=== PATIENT | female | born 1975 | race Caucasian/White ===

== ENCOUNTER 2023-01-02 20:28 | Emergency (ER) | payer BC, OTHER ==
[~2023-01-02] VITALS: Ht 160 cm; Wt 91.0 kg
[2023-01-02] MEDS ORDERED: ONDANSETRON 4 MG/2 ML (SDV) Z0FRAN ONE (21:04)
[2023-01-02 21:32] LABS: BASOPHILS # (AUTO) 0.1 10^3/uL (0.0-0.1); BASOPHILS % (AUTO) 1 % (0-10); EOSINOPHILS # (AUTO) 0.2 10^3/uL (0.0-0.3); EOSINOPHILS % (AUTO) 1 % (0-10); HEMATOCRIT 41 % (35-52); HEMOGLOBIN 13.5 g/dL (11.5-16.0); LYMPHOCYTES # (AUTO) 2.2 10^3/uL (1.0-4.0); LYMPHOCYTES % (AUTO) 15 % (12-44); MEAN CORPUSCULAR HEMOGLOBIN 28 pg (25-34); MEAN CORPUSCULAR HGB CONC 33 g/dL (32-36); MEAN CORPUSCULAR VOLUME 86 fL (80-99); MEAN PLATELET VOLUME 10.1 fL (9.0-12.2); MONOCYTES # (AUTO) 1.1 10^3/uL (0.0-1.0); MONOCYTES % (AUTO) 8 % (0-12); NEUTROPHILS # (AUTO) 10.7 10^3/uL (1.8-7.8); NEUTROPHILS % (AUTO) 75 % (42-75); PLATELET COUNT 387 10^3/uL (130-400); WHITE BLOOD COUNT 14.3 10^3/uL (4.3-11.0)
[2023-01-02 21:37] LABS: POTASSIUM 3.7 MMOL/L (3.6-5.0)
[2023-01-02 21:38] LABS: CALCIUM 9.1 MG/DL (8.5-10.1)
[2023-01-02 21:39] LABS: TOTAL PROTEIN 7.4 GM/DL (6.4-8.2)
[2023-01-02 21:41] LABS: BILIRUBIN,TOTAL 0.4 MG/DL (0.1-1.0)
[2023-01-02 21:43] LABS: CREATININE SERUM 0.9 MG/DL (0.60-1.30)
[2023-01-02 21:55] LABS: BILIRUBIN,URINE NEGATIVE (NEGATIVE); CLARITY,URINE CLEAR; COLOR,URINE YELLOW; GLUCOSE, URINE (UA) NEGATIVE (NEGATIVE); KETONES,URINE NEGATIVE (NEGATIVE); LEUKOCYTE ESTERASE ,URINE 1+ (NEGATIVE); NITRITE,URINE NEGATIVE (NEGATIVE); PROTEIN,URINE NEGATIVE (NEGATIVE)
[2023-01-02 22:07] LABS: BAND NEUTROPHILS 2 %; EOSINOPHILS % (MANUAL) 1 %; LYMPHOCYTES % (MANUAL) 20 %; MONOCYTES % (MANUAL) 6 %; NEUTROPHILS % (MANUAL) 70 %
[2023-01-02 22:08] LABS: ATYPICAL LYMPHOCYTES 1 %; PLATELET ESTIMATE ADEQUATE; RBC MORPH NORMAL
[2023-01-02 22:14] LABS: BACTERIA,URINE FEW /HPF
[2023-01-02 22:17] LABS: AMPHETAMINE SCREEN, URINE NEGATIVE (NEGATIVE); BARBITURATE SCREEN URINE NEGATIVE (NEGATIVE); BENZODIAZEPINES SCREEN URINE POSITIVE (NEGATIVE); CANNABINOID SCREEN, URINE NEGATIVE (NEGATIVE); COCAINE SCREEN URINE NEGATIVE (NEGATIVE); METHADONE STAT NEGATIVE (NEGATIVE); OPIATE SCREEN URINE NEGATIVE (NEGATIVE); OXYCODONE STAT NEGATIVE (NEGATIVE); PROPOXYPHENE STAT NEGATIVE (NEGATIVE); TRICYCLIC ANTIDEPRESSANTS SCRE NEGATIVE (NEGATIVE)
--- NOTE | 2023-01-02 22:27 | ED Abdominal Pain ---
General Chief Complaint: Abdominal/GI Problems Stated Complaint: ABD/BACK PAIN Nursing Triage Note: PT AMB TO ED BY POV WITH C/O ABD PAIN RADIATING TO BACK BEGINNING 1729. DENIES N/V, LBM TODAY NORMAL FOR PT. DENIES URINARY SX. PT REPORTS SIMILAR INTERMITTENT PAIN OVER THE LAST 3 YEARS. Source of Information: Patient History of Present Illness Date Seen by Provider: Jan 02, 2023 Allergies and Home Medications Allergies Coded Allergies: codeine (Verified Adverse Reaction, Unknown, 01/02/23) Past Hfbdqwl-Bxyawc-Fnvwjw Hx Patient Social History Tobacco Use?: No Use of E-Cig and/or Vaping dev: No Substance use?: No Alcohol Use?: Yes Alcohol Frequency: Once in a while Pt feels they are or have been: No Immunizations Up To Date Influenza Vaccine Up-to-Date: Yes; Up-to-Date First/Initial COVID19 Vaccinat: X2 Second COVID19 Vaccination Ike: X2 Past Medical History Surgery/Hospitalization HX: BIPOLAR, ANXIETY, DEPRESSION Last Menstrual Period: Jan 02, 2023 Physical Exam Vital Signs Vital Signs - First Documented 01/02/23 20:44 Temp 36.3 Pulse 110 Resp 20 B/P (MAP) 132/80 (97) Pulse Ox 97 O2 Delivery Room Air Capillary Refill : Less Than 3 Seconds Height/Weight/BMI Height: '" Weight: lbs. oz. kg; 35.00 BMI Method: Progress/Results/Core Measures Results/Orders Lab Results Laboratory Tests Test 01/02/23 20:17 01/02/23 20:45 Range/Units White Blood Count 14.3 H 4.3-11.0 10^3/uL Red Blood Count 4.79 3.80-5.11 10^6/uL Hemoglobin 13.5 11.5-16.0 g/dL Hematocrit 41 35-52 % Mean Corpuscular Volume 86 80-99 fL Mean Corpuscular Hemoglobin 28 25-34 pg Mean Corpuscular Hemoglobin Concent 33 32-36 g/dL Red Cell Distribution Width 13.2 10.0-14.5 % Platelet Count 387 130-400 10^3/uL Mean Platelet Volume 10.1 9.0-12.2 fL Immature Granulocyte % (Auto) 0 % Neutrophils (%) (Auto) 75 42-75 % Lymphocytes (%) (Auto) 15 12-44 % Monocytes (%) (Auto) 8 0-12 % Eosinophils (%) (Auto) 1 0-10 % Basophils (%) (Auto) 1 0-10 % Neutrophils # (Auto) 10.7 H 1.8-7.8 10^3/uL Lymphocytes # (Auto) 2.2 1.0-4.0 10^3/uL Monocytes # (Auto) 1.1 H 0.0-1.0 10^3/uL Eosinophils # (Auto) 0.2 0.0-0.3 10^3/uL Basophils # (Auto) 0.1 0.0-0.1 10^3/uL Immature Granulocyte # (Auto) 0.1 0.0-0.1 10^3/uL Neutrophils % (Manual) 70 % Lymphocytes % (Manual) 20 % Monocytes % (Manual) 6 % Eosinophils % (Manual) 1 % Band Neutrophils 2 % Atypical Lymphocytes 1 % Platelet Estimate ADEQUATE Blood Morphology Comment NORMAL Sodium Level 139 135-145 MMOL/L Potassium Level 3.7 3.6-5.0 MMOL/L Chloride Level 108 H 98-107 MMOL/L Carbon Dioxide Level 17 L 21-32 MMOL/L Anion Gap 14 5-14 MMOL/L Blood Urea Nitrogen 10 7-18 MG/DL Creatinine 0.90 0.60-1.30 MG/DL Estimat Glomerular Filtration Rate 80 BUN/Creatinine Ratio 11 Glucose Level 121 H 70-105 MG/DL Calcium Level 9.1 8.5-10.1 MG/DL Corrected Calcium 9.1 8.5-10.1 MG/DL Total Bilirubin 0.4 0.1-1.0 MG/DL Aspartate Amino Transf (AST/SGOT) 43 H 5-34 U/L Alanine Aminotransferase (ALT/SGPT) 29 0-55 U/L Alkaline Phosphatase 67 40-136 U/L Total Protein 7.4 6.4-8.2 GM/DL Albumin 4.0 3.2-4.5 GM/DL Amylase Level 69 25-125 U/L Lipase 31 8-78 U/L Serum Test, Qualitative NEGATIVE NEGATIVE Urine Color YELLOW Urine Clarity CLEAR Urine pH 6.0 5-9 Urine Specific [place] 1.020 1.016-1.022 Urine Protein NEGATIVE NEGATIVE Urine Glucose (UA) NEGATIVE NEGATIVE Urine Ketones NEGATIVE NEGATIVE Urine Nitrite NEGATIVE NEGATIVE Urine Bilirubin NEGATIVE NEGATIVE Urine Urobilinogen 1.0 < = 1.0 MG/DL Urine Leukocyte Esterase 1+ H NEGATIVE Urine RBC (Auto) TRACE-I H NEGATIVE Urine RBC 2-5 H /HPF Urine WBC 5-10 H /HPF Urine Squamous Epithelial Cells 5-10 /HPF Urine Crystals NONE /LPF Urine Bacteria FEW H /HPF Urine Casts NONE /LPF Urine Mucus MODERATE H /LPF Urine Culture Indicated YES Urine Opiates Screen NEGATIVE NEGATIVE Urine Oxycodone Screen NEGATIVE NEGATIVE Urine Methadone Screen NEGATIVE NEGATIVE Urine Propoxyphene Screen NEGATIVE NEGATIVE Urine Barbiturates Screen NEGATIVE NEGATIVE Ur Tricyclic Antidepressants Screen NEGATIVE NEGATIVE Urine Phencyclidine Screen NEGATIVE NEGATIVE Urine Amphetamines Screen NEGATIVE NEGATIVE Urine Methamphetamines Screen NEGATIVE NEGATIVE Urine Benzodiazepines Screen POSITIVE H NEGATIVE Urine Cocaine Screen NEGATIVE NEGATIVE Urine Cannabinoids Screen NEGATIVE NEGATIVE My Orders Orders - CHAD MOTT DO Ondansetron Injection (Zofran Injectio (01/02/23 21:04) Ed Iv/Invasive Line Start (01/02/23 21:19) Urine Bedside (01/02/23 21:19) Amylase (01/02/23 21:19) Cbc With Automated Diff (01/02/23 21:19) Comprehensive Metabolic Panel (01/02/23 21:19) Lipase (01/02/23 21:19) Ua Culture If Indicated (01/02/23 21:19) Drug Screen Stat (Urine) (01/02/23 21:32) Hcg,Qualitative Serum (01/02/23 21:32) Ed Iv/Invasive Line Start (01/02/23 21:32) Manual Differential (01/02/23 20:17) Ct Abdomen/Pelvis W (01/02/23 22:01) Urine Culture (01/02/23 20:45) Iohexol Injection (Omnipaque 350 Mg/Ml 1 (01/02/23 22:30) Received Contrast (Hold Metformin- Contr (01/02/23 22:30) Sodium Chloride Flush (Catheter Flush Sy (01/02/23 22:30) Ns (Ivpb) (Sodium Chloride 0.9% Ivpb Bag (01/02/23 22:30) Ceftriaxone Iv/Im (Rocephin Iv/Im) (01/02/23 23:00) Medications Given in ED Current Medications Medications Dose Ordered Sig/[place] Start Time Stop Time Status Last Admin Dose Admin Ceftriaxone Sodium 1000 mg/ Sodium Chloride 50 ml @ 100 mls/hr ONCE ONCE IV 01/02/23 23:00 01/02/23 23:29 01/02/23 23:06 100 MLS/HR Iohexol 100 ml ONCE ONCE IV 01/02/23 22:30 01/02/23 22:31 DC 01/02/23 22:30 80 ML Ondansetron HCl 4 mg STK-MED ONCE .ROUTE 01/02/23 21:04 01/02/23 21:06 DC 01/02/23 21:09 4 MG Sodium Chloride 10 ml NEEDED PRN IV 01/02/23 22:30 01/02/23 22:30 10 ML Sodium Chloride 100 ml ONCE ONCE IV 01/02/23 22:30 01/02/23 22:31 DC 01/02/23 22:30 80 ML Vital Signs/I&O 01/02/23 20:44 Temp 36.3 Pulse 110 Resp 20 B/P (MAP) 132/80 (97) Pulse Ox 97 O2 Delivery Room Air Blood Pressure Mean: 97 Departure Impression Primary Impression: Cholelithiasis Additional Impressions: UTI (urinary tract infection) Appendicolith Disposition: HOME, SELF-CARE Condition: Improved Departure-Patient Inst. Decision time for Depature: 23:13 Referrals: SONIYA LONGORIA MINDI DO NO,LOCAL PHYSICIAN (PCP) Primary Care Physician Patient Instructions: Gallstones ED, Urinary Tract Infection, Adult ED Add. Discharge Instructions: CLEAR LIQUIDS--WATER, BROTH, JELLO, GATORADE BRATS DIET--BANANAS, RICE, APPLESAUCE, TOAST, SALTINES FOLLOW UP WITH DR. LONGORIA, SURGEON, FOR FURTHER CARE--CALL IN THE MORNING TO MAKE AN APPOINTMENT FOLLOW UP WITH DR. SALCEDO, TO ESTABLISH CARE. CALL IN THE MORNING TO SCHEDULE AN APPOINTMENT All discharge instructions reviewed with patient and/or family. Voiced understanding. Scripts Dicyclomine HCl (Dicyclomine HCl) 20 Mg Tablet 20 MG PO Q6H for Abdominal Pain, #20 TAB Prov: CHAD MOTT DO 01/02/23 Ondansetron (Ondansetron Odt) 4 Mg Tab.rapdis 4 MG PO Q4H for Nausea/Vomiting, #10 TAB Prov: CHAD MOTT DO 01/02/23 Nitrofurantoin Monohyd/M-Cryst (Macrobid 100 mg Capsule) 100 Mg Capsule 1 TAB PO BID, #20 CAP Prov: CHAD MOTT DO 01/02/23 CHAD MOTT DO Jan 02, 2023 22:27
[2023-01-02] MEDS ORDERED: NS 100 ML (IVPB) BAG IV ONE (22:30)
[2023-01-02] MEDS ORDERED: HOLD METFORMIN - RECEIVED CONTRAST 20 ML VIAL IV SCH (22:30)
[2023-01-02] MEDS ORDERED: IOHEXOL 350 MG/ML 100 ML (OMNIPAQUE 350) VIAL IV ONE (22:30)
[2023-01-02] MEDS ORDERED: CATHETER FLUSH 10 ML SYR IV PRN (22:30)
[2023-01-02] MEDS ORDERED: cefTRIAXone IV/IM 1,000 MG in NS (IVPB) 50 ML IV ONE (23:00)
[2023-01-02] MEDS ORDERED: DICY20TA PO (23:22)
[2023-01-02] MEDS ORDERED: NITR-65 PO (23:22)
[2023-01-02] MEDS ORDERED: ONDA4TAB11 PO (23:22)
[2023-01-02 23:25] VITALS: BP 134/72
--- NOTE | 2023-01-03 08:09 | Diagnostic Imaging Report ---
PROCEDURE: CT abdomen and pelvis with contrast. TECHNIQUE: Multiple contiguous axial images were obtained through the abdomen and pelvis after administration of intravenous contrast. Auto Exposure Controls were utilized during the CT exam to meet ALARA standards for radiation dose reduction. All CT scans use one or more of the following dose optimizing techniques: automated exposure control, MA and/or KvP adjustment based on patient size and exam type or iterative reconstruction. INDICATION: Abdominal pain, nausea and vomiting. COMPARISON: None FINDINGS: Lung bases are clear. The heart is normal in size. There is no pericardial effusion. The liver demonstrates no focal lesions. There are small calcified stones in the gallbladder. The spleen appears normal. The pancreas is normal. The adrenal glands appear normal. The kidneys demonstrate no enhancing lesions and no hydronephrosis. The bowel loops are nondistended without obstruction. The appendix is normal. An appendicolith is noted. No free fluid or free air is seen. A tampon is noted. There are follicles noted in the ovaries with no masses or lymphadenopathy seen. The aorta is normal in caliber. No acute osseous abnormalities seen. IMPRESSION: 1. Cholelithiasis. Dictated by: Dictated on workstation # [id number]
== END 2023-01-02 23:24 | disposition home or self-care (01) ==
LOC: ER 20:31
DX: K80.20 Calculus of gallbladder without cholecystitis without obstruction (principal); N39.0 Urinary tract infection, site not specified; K38.1 Appendicular concretions
CPT/HCPCS: 36415; 74177; 80053; 80306; 81000; 82150; 83690; 84703; 85007; 85027; 87088

== ENCOUNTER 2023-01-23 05:32 | Outpatient (CLI) | payer BC ==
[~2023-01-23] VITALS: Ht 160 cm; Wt 92.1 kg
[~2023-01-23 05:32] MED LIST: DICY20TA PO; NITR-65 PO; ONDA4TAB11 PO
[2023-01-23] MEDS ORDERED: FLUO40CA12 PO (13:19)
[2023-01-23] MEDS ORDERED: ARIP5TAB12 PO (13:19)
== END 2023-01-23 13:32 ==
LOC: PREOP 05:32
PROVIDERS: ATTEND Surgery
DX: Z01.818 Encounter for other preprocedural examination (principal)

== ENCOUNTER 2023-01-29 08:18 | Day surgery (SDC) | payer BC ==
[~2023-01-29] VITALS: Ht 160 cm; Wt 92.1 kg
[2023-01-29] VITALS (11 sets, daily range): BP systolic 103–141; BP diastolic 54–87
[~2023-01-29 08:18] MED LIST changes: +ARIP5TAB12 PO; +FLUO40CA12 PO
--- NOTE | 2023-01-29 08:39 | Progress Note-Pre Operative ---
Pre-Operative Progress Note Date of Available H&P: Jan 21, 2023 Date H&P Reviewed: Jan 29, 2023 Time H&P Reviewed: 08:36 History & Physical: H&P Reviewed, Patient Examed, No changes noted Pre-Operative Diagnosis: Cholelithiasis, Appendicolith SONIYA LONGORIA DO Jan 29, 2023 08:39
[2023-01-29] MEDS ORDERED: NS (IVPB) 50 ML 50 ML ONE (08:58)
[2023-01-29] MEDS ORDERED: ceFAZolin INJECTION 2,000 MG ONE (08:58)
[2023-01-29] MEDS ORDERED: LIDOCAINE/EPI 1%-1:100,000 (XYLOCAINE) 20ML ONE ×2 (09:02→10:21)
[2023-01-29] MEDS ORDERED: ceFAZolin INJECTION 2,000 MG in NS (IVPB) 50 ML 50 ML IV ONE (09:30)
[2023-01-29] MEDS ORDERED: LACTATED RINGERS 1,000 ML IV PRN (09:30)
[2023-01-29] MEDS ORDERED: MIDAZOLAM 2 MG/2 ML (VERSED) VIAL ONE (09:47)
[2023-01-29] MEDS ORDERED: GLYCOPYRROLATE 0.2 MG/ML (ROBINUL) 2 ML VIAL ONE (09:47)
[2023-01-29] MEDS ORDERED: ROCURONIUM 50 MG/5 ML (ZEMURON) VIAL IV ONE (09:47)
[2023-01-29] MEDS ORDERED: dexAMETHasone INJ 10 MG/ML 1 ML VIAL ONE (09:47)
[2023-01-29] MEDS ORDERED: fentaNYL INJ 100 MCG/2 ML AMP ONE ×2 (09:47→12:18)
[2023-01-29] MEDS ORDERED: ONDANSETRON 4 MG/2 ML (SDV) Z0FRAN ONE (09:47)
[2023-01-29] MEDS ORDERED: LIDOCAINE PF 2% 5 ML (XYLOCAINE) VIAL ONE (09:47)
[2023-01-29] MEDS ORDERED: NEOSTIGMINE (BLOXIVERZ ) 1 MG/1ML 10 ML VIAL ONE (09:47)
[2023-01-29] MEDS ORDERED: proPOfol 200 MG/20 ML (DIPRIVAN) VIAL IV ONE (09:47)
[2023-01-29] MEDS ORDERED: PHENYLEPHRINE 100 MCG/ML 10 ML (ANESTHESIA) SYR ONE (11:38)
[2023-01-29] MEDS ORDERED: IOHEXOL 300 MG/ML 30 ML (OMNIPAQUE 300) VIAL INJ ONE (11:56)
[2023-01-29] MEDS ORDERED: LIDOCAINE/EPI 1%-1:100,000 (XYLOCAINE) 20ML INJ ONE (11:57)
[2023-01-29] MEDS ORDERED: SEVOFLURANE (ULTANE) 15 ML INHAL SOLN ONE (12:00)
--- NOTE | 2023-01-29 12:10 | Progress Note-Post Operative ---
Post-Operative Progess Note Surgeon (s)/Professor Of Literacy (s) Surgeon SONIYA LONGORIA DO Professor Of Literacy: [place] Pre-Operative Diagnosis Cholelithiasis, Appendicolith Post-Operative Diagnosis Same plus adhesions to gallbladder Procedure & Operative Findings Date of Procedure 01/29/23 Procedure Performed/Findings Laparoscopic Cholecystectomy with IOC Laparoscopic Appendectomy COMPLICATIONS: None. PROCEDURE: The patient was taken to the operating suite and was prepped and draped in sterile fashion. A surgical pause was performed. Just superior to the umbilicus, a 12 mm incision was made. Dissection was taken down to the fascia, which was then scored and grasped with a Terrie and the abdomen was then entered. An 0 Vicryl suture was placed in a [id number] fashion and a Levy trocar was placed and secured. Pneumoperitoneum was achieved. A 5mm trochar place in the subxyphoid and 2 in the right upper quadrant. The gallbladder was then grasped and elevated in the superior direction. Found adhesions to the gallbladder (omentum and stomach) which usually indicates previous gallbladder attacks. Then grasped at Jackson's pouch and pulled in the infero-lateral direction. Adhesions were taken down and the cystic duct and cystic artery were then dissected out. Clip was placed on the distal portion of the cystic duct which was then partially transected. An arrow catheter was inserted into the duct. The cholangiogram was then performed. No filling defects and contrast made its way into the duodenum. Catheter removed. Clips were placed on proximal portion of the cystic duct and then the duct was then transected. Clips were placed along the proximal and distal portion of the cystic artery which was then transected. Hook cautery was used to dissect the gallbladder from the gallbladder fossa achieving hemostasis. The gallbladder was placed in the pelvis and then at this time started the appendectomy. Appendix was found a little retrocecal and the tip looked enlarged and possibly mildly inflamed. The base of the appendix was dissected around. Once at the base an Endo-LUC 2.5 stapler was then fired across the base of the appendix. The mesoappendix was then divided. It was then placed in an Endobag with the Gallbladder and removed through the 12 mm trocar site. The abdomen was then irrigated and suctioned. No other pathology noted and there were no signs of active bleeding. Hemostasis had been achieved. The 12 mm fascial defect was then closed with 0 Vicryl suture that had been placed in a jyesyw-de-uweew fashion. The abdomen was then desufflated, the trocars were removed. The abdomen was then washed and dried. The skin was then closed using 4-0 Monocryl in a subcuticular fashion. The abdomen was washed and dried and Skin Affix was place over incisions. Patient tolerated the procedure well without any complications and was taken to the recovery room in stable condition. Dr. Odonnell helped to make incisions, close incisions, identify anatomy and hold anatomy out of the way. Anesthesia Type GET Estimated Blood Loss Estimated blood loss (mL): scant Specimens/Packing Specimens Removed gallbladder and appendix SONIYA LONGORIA DO Jan 29, 2023 12:10
[2023-01-29] MEDS ORDERED: ONDANSETRON 4 MG/2 ML (SDV) Z0FRAN IVP PRN (12:15)
[2023-01-29] MEDS ORDERED: fentaNYL INJ 100 MCG/2 ML AMP IVP ONE (12:15)
[2023-01-29] MEDS ORDERED: MEPERIDINE (DEMEROL) INJ 50 MG/ML IVP ONE (12:15)
--- NOTE | 2023-01-29 12:16 | Anesthesia-General Post-Op ---
General Patient Condition Mental Status/LOC: Same as Preop Cardiovascular: Satisfactory Nausea/Vomiting: Absent Respiratory: Satisfactory Pain: Controlled Complications: Absent Post Op Complications Complications None Follow Up Care/Instructions Patient Instructions None needed. Anesthesia/Patient Condition Patient Condition Patient is doing well, no complaints, stable vital signs, no apparent adverse anesthesia problems. No complications reported per nursing. DORA MINAYA CRNA Jan 29, 2023 12:16
[2023-01-29] MEDS ORDERED: HYDROcodone/ACETAMINOPHEN 5 MG/325 MG TABLET ONE (13:24)
[2023-01-29] MEDS ORDERED: HYDROcodone/ACETAMINOPHEN 5 MG/325 MG TABLET PO ONE (13:30)
--- NOTE | 2023-01-29 13:50 | Diagnostic Imaging Report ---
HISTORY: 47 year-old female with laparoscopic cholecystectomy. COMPARISON: None. TECHNIQUE: A total of 62 intraoperative fluoroscopic images of the abdomen was saved in the frontal projection. FLUOROSCOPIC TIME: 11.7 seconds. FINDINGS: Intraoperative fluoroscopic images were obtained during cholecystectomy. The common bile duct does not appear dilated and no filling defects are seen on this exam. Delayed contrast is seen in the duodenum. Contrast leaks along the inferior border of the liver. IMPRESSION: Fluoroscopic intraoperative images obtained during cholecystectomy. There is leakage of contrast but no obstruction of the common bile duct is observed. Dictated by: Dictated on workstation # [id number]
[2023-01-29] MEDS ORDERED: ACHD5005 PO (14:01)
--- NOTE | 2023-01-29 14:02 | Discharge Inst-Surgical ---
Discharge Inst-Surgical Depart Medication/Instructions New, Converted or Re-Newed RX: Transmitted to Pharmacy Patient Instructions Follow up Appt: Make appointment for 1 week. [phone] Instructions: No lifting greater than 20 pounds. No strenuous activity. May shower in 24 hours, no tub bath or soaking. Use incentive spirometer at home as directed. No Smoking Skin/Wound Care: May remove bandages in am. You need to leave the Dermabond on incision it will fall off on it's own. Symptoms to Report: Appetite Changes, Extremity Discoloration, Numbness/Tingling, Swelling Increased, Bleeding Excessive, Eyesight Changes, Pain Increased, Urine Color Change, Constipation(Persistent), Fever over 101 degree F, Pain/Pressure in chest, Urinating Difficulty, Cough Up/Vomit Blood, Heart Beat Irreg/Pounding, Pain/Pressure in jaw, Cramps in feet or legs, Lightheadedness, Pain/Pressure in shoulder, Diarrhea(Persistent), Memory Changes Suddenly, Questions/Concerns, Weight gain consecutive days, Dizziness/Fainting, Nausea/Vomiting, Shortness of Breath, Weight gain over 2 pounds If questions or concerns contact your physician Or seek help at emergency department. Activity Activity as Tolerated: Yes Activity Instructions: Avoid Stress to Incision Diet Discharge Diet: Avoid Fatty Foods, Low Fat/Low Cholesterol Diet After 24 Hours: Clear Liquid if Nauseous If Any Problems/Questions/Issu: Contact Your Physician, Go to Emergency Room Skin/Wound Care Infection Signs and Symptoms: Increased Redness, Foul Odor of Wound, Increased Drainage, Skin Itchy or Has a Rash, Increased Swelling, Temperature Above 101 F Wound Care Comment: heating pad to shoulder or neck tonight for pain Bathing Instructions: Shower Stitches/Stephon/Dermabond Dis: Dermabond Ice Pack: Ice On and Off Site SONIYA LONGORIA DO Jan 29, 2023 14:02
== END 2023-01-29 14:40 | disposition home or self-care (01) ==
LOC: SDC 08:18
PROVIDERS: ATTEND Surgery
DX: K80.10 Calculus of gallbladder with chronic cholecystitis without obstruction (principal); K38.0 Hyperplasia of appendix; K66.0 Peritoneal adhesions (postprocedural) (postinfection); Z87.891 Personal history of nicotine dependence
CPT/HCPCS: 76000; 84703; 87081; 88304